=== PATIENT | female | born 1970 | race Two or more races ===

== ENCOUNTER → 2019-10-27 | Day surgery (SDC) | payer OTHER | END | disposition home or self-care (01) | LOC: ADM 10-24 10:00 → CIR.AMB 06:41 | DX: D05.01 Lobular carcinoma in situ of right breast (principal) ==

== ENCOUNTER 2024-02-03 09:30 | Outpatient (CLI) | payer OTHER | END 2024-02-03 09:33 | disposition home or self-care (01) | LOC: SONOGRAMA 09:30 | PROVIDERS: ATTEND Pathology Anatomic Pathology & Clinical Pathology | DX: E04.2 Nontoxic multinodular goiter (principal) ==

== ENCOUNTER 2024-03-30 11:02 | Outpatient (CLI) | payer OTHER | END 2024-03-30 11:10 | disposition home or self-care (01) | LOC: SONOGRAMA 11:02 | PROVIDERS: ATTEND Pathology Anatomic Pathology & Clinical Pathology | DX: D34 Benign neoplasm of thyroid gland (principal); E06.3 Autoimmune thyroiditis; E04.2 Nontoxic multinodular goiter ==